=== PATIENT | female | born 1965 | race Caucasian/White ===

== ENCOUNTER 2018-08-04 06:14 | Day surgery (SDC) | payer OTHER ==
[2018-08-03 08:32] VITALS: BMI 38.4
[2018-08-04] MEDS ORDERED: PROPOFOL 20 ML ONE ×4 (07:30)
[2018-08-04] MEDS ORDERED: MIDAZOLAM HCL 2 MG/2 ML SINGLE DOSE VIAL ONE (07:30)
--- NOTE | 2018-08-04 07:38 | OP ---
Operative Note - Note: Operative Date: 08/04/18 Pre-Operative Diagnosis: 53yo P0 with thick endometrium Operation: Hysteroscopy, polypectomy, D&C Findings: Endometrial polyp Post-Operative Diagnosis: Same as Pre-op Surgeon: Kimberley Lanier Anesthesiologist/RESOURCE SPECIALIST TEACHER: Donovan Ann Anesthesia: MAC Estimated Blood Loss (mls): 50 Instrument used (Debridements only): Symphion hysteroscope Drains & Tubes with Location: Fluid deficit 0cc Drains, Volume Out (mls): 150 Fluid Volume Replaced (mls): 700 Operative Report Dictated: Yes
--- NOTE | 2018-08-04 07:38 | HP ---
History & Physical Update - History History: No Change - Physical Physical: No Change - Assessment Assessment: No Change - Plan Plan: No Change (H&P reviewed and consistent with 07/29/18 Consent signed all questions answered)
[2018-08-04] MEDS ORDERED: ONDANSETRON 4 MG/2 ML VIAL IVPUSH PRN ×2 (07:39→08:27)
[2018-08-04] MEDS ORDERED: oxyCODONE HCL 5 MG TABLET PO PRN ×3 (07:39→08:27)
[2018-08-04] MEDS ORDERED: IBUPROFEN 800 MG/8 ML IJ IVPB PRN (07:39)
[2018-08-04] MEDS ORDERED: IBUPROFEN 600 MG TABLET (FP) PO PRN (07:39)
[2018-08-04] MEDS ORDERED: ELECTROLYTE-148 SOLN 1,000 ML IV SCH (07:45)
[2018-08-04] MEDS ORDERED: metroNIDAZOLE 500 MG PREMIXED 1,000 MG/200 ML MG IVPB ONE (07:45)
[2018-08-04] MEDS ORDERED: SILVER NITRATE 75% APPLIC STCK 1 PKT EACH TP ONE (08:30)
[2018-08-04] MEDS ORDERED: LACTATED RINGERS SOLUTION 1,000 ML IV SCH (08:30)
[2018-08-04 13:43] VITALS: BP 125/71; PULSE 61; TEMP 98
--- NOTE | 2018-08-05 06:12 | OP ---
DATE OF OPERATION: 08/04/2018 PREOPERATIVE DIAGNOSIS: A 53-year-old para 0 with thick endometrium. OPERATION: Hysteroscopy, polypectomy, dilation and curettage. FINDINGS: Endometrial polyp. POSTOPERATIVE DIAGNOSIS: A 53-year-old para 0 with thick endometrium. SURGEON: Dinorah Garber MD FORESTRY PATROLMAN: Donovan Ann CRNA ANESTHESIA: MAC. DESCRIPTION OF THE OPERATIVE PROCEDURE: After ensuring informed consent patient was brought to the operating room where she was placed in dorsal lithotomy position. Vagina, perineum, and cervix were prepped and draped in sterile fashion. Lama retractors were placed into the vagina, anterior lip of the cervix articulated with single-tooth tenaculum, and cervix was gradually dilated to accommodate 6.3 mm Symphion hysteroscope. The hysteroscope was wide-balanced and primed and introduced into the cervical canal and uterus without any difficulty. Bilateral ostia were visualized, and an endometrial polyp was noted. Resecting device was not available, so polyp forceps and the sharp curette were used to remove polyp as well as obtain endometrial curettings. The look-back with the hysteroscope was performed. Uterus was cleared of clot and debris. Uterus was found to be clear of any polyp or excess of endometrial tissue. All instruments were removed from cervix, vagina, and uterus. The tenaculum site on the right was found to be bleeding, and 0 UR-6 stitch was placed to temporize the bleeding, which improved slightly, but Surgicel was necessary to stop the bleeding completely. Patient was found to be hemostatic. Sponge and instrument counts were correct x2. Estimated blood loss was 50 mL. Urine output was 150 mL. Patient received 700 mL of IV fluids. Fluid deficit was 0. Patient was brought to the recovery room in stable condition. DINORAH GARBER M.D. [id number]
--- NOTE | 2018-08-05 16:17 | PATH ---
Surgical Pathology Report Patient Name: PABLO REDD [facility]. Rec. #: [id number] /Age/Gender: 1965 (Age: 53) / F Account: [id number] Location: [facility] SURGICAL Taken: 08/04/2018 Received: 08/04/2018 Reported: 08/05/2018 Physicians: Kimberley Lanier M.D. Specimen(s) Received ENDOMETRIAL CURETTINGS AND POLYP Clinical History Postmenopausal bleeding Final Diagnosis ENDOMETRIAL CURETTINGS AND POLYP, EXCISION: ENDOMETRIAL POLYP. SEPARATE FRAGMENTS OF WEAKLY PROLIFERATIVE ENDOMETRIUM. SEPARATE SMOOTH MUSCLE BUNDLES, SEE NOTE. SEPARATE SQUAMOUS EPITHELIUM WITH NO DIAGNOSTIC ABNORMALITIES. Note: This may represent a submucosal leiomyoma in the proper clinical setting. Suggest clinical correlation Electronically Signed Trupti Ramirez M.D. Gross Description Received in formalin labeled "endometrial curettings and polyp," is a 3.0 x 3.0 x 0.4 cm aggregate of pyle-brown soft tissue fragments admixed with blood clot. The formalin is filtered and the specimen is entirely submitted in 2 cassettes. /08/04/2018 saudi/08/04/2018
== END 2018-08-04 13:43 | disposition home or self-care (01) ==
LOC: JASU-SURG 06:14
PROVIDERS: ATTEND Obstetrics & Gynecology
PROC: 0UDB7ZX Extraction of Endometrium, Via Natural or Artificial Opening, Diagnostic (ICD-10-PCS; principal; 2018-08-04 07:30)
PROC: 0UJD8ZZ Inspection of Uterus and Cervix, Via Natural or Artificial Opening Endoscopic (ICD-10-PCS; 2018-08-04 07:30)
DX: N84.0 Polyp of corpus uteri (principal)
CPT/HCPCS: 88305-TC; 94760